=== PATIENT | female | born 1945 | race Caucasian/White ===

== ENCOUNTER 2025-06-11 17:18 | Emergency (ER) | payer OTHER ==
[~2025-06-11] VITALS: Ht 152.4 cm; Wt 72.7 kg
--- NOTE | 2025-06-11 17:34 | ED.PDOC ---
GI ASSESSMENT HPI Comments 80-year-old female with a history of CVA and residual left-sided deficit, hypertension and recent diagnosis of an umbilical hernia brought in by EMS from home complaining of umbilical hernia pain radiating to the right lower quadrant. Patient states she is not currently taking any medication for pain. She denies any fever, nausea, vomiting, diarrhea, constipation or dysuria. Patient states she had a bowel movement this morning. Time Seen by MD: 17:21 Reviewed Notes: Nurses Notes, Tennis Director Notes, Medications, Allergies Allergies: Coded Allergies: No Known Drug Allergy (Verified Allergy, Unknown, 06/11/25) Information Source: Patient, Emergency Med Personnel Mode of Arrival: EMS Timing: Days Duration: Since onset Prehospital treatment: None Past Medical History PAST MEDICAL HISTORY: CVA (residual left-sided deficit), HTN Past Medical History (Other): recent diagnosis of an umbilical hernia Surgical History: Hysterectomy Surgical History (Other): right arm surgery Social History Smoker: Non-Smoker Alcohol: Denies ETOH Use Drugs: Denies Drug Use Lives In: Home All Other Systems: Reviewed and Negative (Comprehensive systems review obtained and negative except for what is stated in the HPI.) Physical Exam General Appearance: No Apparent Distress, Obese HEENT: Other (Pupils and face symmetric. Moist mucous membranes.) Neck: Full Range of Motion, Normal Inspection Respiratory: Lungs Clear, No Accessory Muscle Use, No Respiratory Distress, Normal Breath Sounds Cardiovascular: No JVD, Regular Rate/Rhythm Breast Exam: Deferred Gastrointestinal: Distended, Hernia (Umbilical hernia approximately 2 cm, soft, tender, non reducible), RLQ, Tenderness Genitalia: Deferred Pelvic: Deferred Rectal: Deferred Extremities: Leg edema, Non-tender, Pedal edema Neurologic: Alert (Oriented x4), Normal Affect, Normal Mood, Other (Left upper extremity contracture) Cerebellar Function: NOT DONE Reflexes: NOT DONE Skin: Dry, Normal Color, Warm Lymphatic: NOT DONE EKG EKG : Comments Sinus rhythm with sinus arrhythmia, rate 87, normal intervals, left axis deviation, normal QRS, no ST/T changes. Was a procedure done? Was a procedure done?: No GI differential Dx Differential Diagnosis: Appendicitis, Bowel Obstruction, Constipation, Diverticular disease, Gastroenteritis, Inflammatory BD, UTI, Food Poisoning, Bacterial, Viral, Impaction, Ischemic Bowel, Stress Ulcer X-Ray, Labs, Meds, VS Vital Signs Date Time Temp Pulse Resp B/P (MAP) Pulse Ox O2 Delivery O2 Flow Rate FiO2 06/11/25 22:52 81 18 131/75 06/11/25 22:29 81 18 98 Room Air* 0 21 06/11/25 22:22 98.3 81 18 131/75 (93) 98 98.3 06/11/25 20:08 98.2 75 18 130/67 (88) 98 98.2 06/11/25 17:24 87 06/11/25 17:18 98.8 84 18 136/87 98 98.8 Lab Test 06/11/25 20:10 06/11/25 19:49 06/11/25 19:12 Range/Units Urine Color Light-yellow Yellow Urine Clarity Clear Clear Urine pH 6.0 5.0-9.0 Urine Specific [place] 1.021 1.001-1.035 Urine Protein Negative Negative Urine Ketones Negative Negative Urine Blood Negative Negative /uL Urine Nitrite Negative Negative Urine Bilirubin Negative Negative Urine Urobilinogen Normal Negative mg/dL Urine Leukocyte Esterase Negative Negative /uL Urine RBC 1 0 - 4 /hpf Urine Microscopic WBC 1 0-5 /HPF Urine Squamous Epithelial Cells Few <5 /hpf Urine Bacteria None seen None Seen /hpf Urine Glucose Normal Normal mg/dL White Blood Count 6.8 4.4-10.8 10^3/uL Red Blood Count 4.16 4.0-5.20 10^6/uL Hemoglobin 13.5 12.2-16.2 g/dL Hematocrit 40.4 36.0-46.0 % Mean Corpuscular Volume 96.9 80.0-100.0 fL Mean Corpuscular Hemoglobin 32.5 H 28.0-32.0 pg Mean Corpuscular Hemoglobin Concent 33.5 32.0-36.0 g/dL Red Cell Distribution Width 13.7 11.8-14.3 % Platelet Count 150 140-450 10^3/uL Mean Platelet Volume 9.5 6.9-10.8 fL Neutrophils (%) (Auto) 37.0-80.0 % Lymphocytes (%) (Auto) 10.0-50.0 % Monocytes (%) (Auto) 0.0-12.0 % Basophils (%) (Auto) 0.0-2.0 % Neutrophils # (Auto) 1.6-8.6 10 ^3/uL Lymphocytes # (Auto) 0.4-5.4 10 ^3/uL Monocytes # (Auto) 0-1.3 10 ^3/uL Differential Total Cells Counted 100.0 100 Neutrophils % (Manual) 59 37.0-80.0 Band Neutrophils % (Manual) 0 Lymphocytes % (Manual) 20 10.0-50.0 Monocytes % (Manual) 18 H 0-12 Eosinophils % (Manual) 3 0-7 Basophils % (Manual) 0 0.0-2.0 Metamyelocytes % (manual) 0 Myelocytes % (Manual) 0 Promyelocytes % (Manual) 0 Blast Cells % (Manual) 0 Reactive Lymphocytes 0 Platelet Estimate Adequate Sodium Level 142 136-145 mmol/L Potassium Level 4.5 3.5-5.1 mmol/L Chloride Level 110 H 98-107 mmol/L Carbon Dioxide Level 21 20-31 mmol/L Anion Gap 11 5-15 Blood Urea Nitrogen 14 9-23 mg/dL Creatinine 1.53 H 0.550-1.02 mg/dL Glomerular Filtration Rate Calc 35 >90 mL/min BUN/Creatinine Ratio 9.2 L 10.0-20.0 Serum Glucose 92 74-106 mg/dL Lactic Acid Level 0.8 0.4-2.0 mmol/L Calcium Level 9.4 8.7-10.4 mg/dL Total Bilirubin 0.5 0.2-1.0 mg/dL Aspartate Amino Transferase (AST) 35 13-40 U/L Alanine Aminotransferase (ALT) 9 7-40 U/L Alkaline Phosphatase 108 46-116 U/L Total Protein 7.9 5.7-8.2 g/dL Albumin 5.2 H 3.2-4.8 g/dL Current Medications Medications (Trade) Dose Ordered Sig/Lucy Route Start Time Stop Time Status Last Admin Morphine Sulfate 4 mg ONCE ONCE IV 06/11/25 22:00 06/11/25 22:28 DC 06/11/25 22:52 Ondansetron HCl (Zofran) 4 mg ONCE ONCE IV 06/11/25 22:00 06/11/25 22:28 DC 06/11/25 22:53 PROCEDURE(s): ABPL - CT AB PEL WO CON-NO ORAL OR IV REASON: Umbilical pain radiating to the right lower quadrant ORDER NUMBER(s): [id number], ACCESSION NUMBER(s): [id number] Exam: CT CT AB PEL WO CON-NO ORAL OR IV History: Umbilical pain radiating to the right lower quadrant Comparison Study: None TECHNIQUE: Multidetector CT of the abdomen and pelvis without IV contrast. Axial, coronal and sagittal multiplanar reformats were obtained from the axial data set by the technologist. Radiation Dose Information: CT Dose: CTDI volume is 20.9 mGy. Dose-length product is 3.92 mGy*cm FINDINGS: Bibasilar atelectasis. Mild cardiomegaly. Trace pericardial effusion. Mild splenomegaly. Otherwise, liver, spleen, gallbladder, pancreas and adrenal glands are unremarkable. Kidneys, ureters and urinary bladder are unremarkable. Uterus and adnexa are unremarkable. Moderate hiatal hernia. Stomach is otherwise unremarkable. The small bowel loops unremarkable. Appendix is unremarkable. Small to moderate amount of fecal material within the colon. No evidence of intraperitoneal free air or free fluid. No evidence of aortic aneurysm. [id number] atherosclerotic calcification of the aorta. No significant lymphadenopathy. Calcified injection granulomas of the bilateral proximal thigh subcutaneous fat. Minimal body wall fat stranding. Small to moderate fat containing umbilical hernia. Partially imaged bilateral breast implants with peripheral calcifications. Multilevel degenerative changes of the thoracic and lumbar spine. Minimal loss of superior vertebral body height of L4 and T7 with moderate loss of right-sided. superior vertebral body height of T6. Sclerotic focus over the left L2 vertebral body which may represent a bone island. IMPRESSION: Small to moderate sized fat containing umbilical hernia with mild fat stranding within the hernia extending into the adjacent anterior mesenteric fat. Correlate for possible strangulation of the herniated fat. Moderate hiatal hernia. X-Ray, Labs, Meds, VS Comment 80-year-old female with a history of CVA and residual left-sided deficit, hypertension and recent diagnosis of an umbilical hernia brought in by EMS from home complaining of umbilical hernia pain radiating to the right lower quadrant Vitals unremarkable Exam remarkable for umbilical hernia which is soft, not reducible, tender, with associated right lower quadrant tenderness to palpation Rhythm strip independently interpreted by me: Sinus rhythm, rate 84, no ectopy. CT abdomen and pelvis IMPRESSION: Small to moderate sized fat containing umbilical hernia with mild fat stranding within the hernia extending into the adjacent anterior mesenteric fat. Correlate for possible strangulation of the herniated fat. Moderate hiatal hernia. CBC unremarkable, CMP remarkable for creatinine 1.53, lactate normal UA negative Patient treated with the following in the ED: Morphine 4 mg IV, Zofran 4 mg IV On re-evaluation, pain has improved. Vitals were stable. Abdominal exam was essentially unchanged. Plan is to admit/transfer the patient for surgical evaluation. Patient endorsed to the overnight ED physician Dr. Alas to discuss with Bola. Patient is stable for transfer at this time. Time of 1ST Reevaluation: 17:51 Reevaluation 1ST: Unchanged Patient Education/Counseling: Diagnosis, Treatment Family Education/Counseling: No Family Present SEPSIS Sepsis Screen Physician Orders Ct Ab Pel Wo Con-No Oral Or Iv (06/11/25 17:34) Blood Culture (06/11/25 17:34) Vital Signs Date Time Temp Pulse Resp B/P (MAP) Pulse Ox O2 Delivery O2 Flow Rate FiO2 06/11/25 22:52 81 18 131/75 06/11/25 22:29 81 18 98 Room Air* 0 21 06/11/25 22:22 98.3 81 18 131/75 (93) 98 98.3 06/11/25 20:08 98.2 75 18 130/67 (88) 98 98.2 06/11/25 17:24 87 06/11/25 17:18 98.8 84 18 136/87 98 98.8 Laboratory Tests Test 06/11/25 19:12 06/11/25 19:49 Lactic Acid Level 0.8 mmol/L (0.4-2.0) White Blood Count 6.8 10^3/uL (4.4-10.8) Medications Medications Dose Ordered Sig/Lucy Route Start Time Stop Time Status Last Admin Dose Admin Morphine Sulfate 4 mg ONCE ONCE IV 06/11/25 22:00 06/11/25 22:28 DC 06/11/25 22:52 Ondansetron HCl 4 mg ONCE ONCE IV 06/11/25 22:00 06/11/25 22:28 DC 06/11/25 22:53 Departure 1 Departure Time of Disposition: 21:53 Impression: Primary Impression: Strangulated umbilical hernia Disposition: 02 SHORT TERM HOSPITAL Admit to: Med Surg Condition: Guarded Critical Care Note Critical Care Time?: No Stability Stability form required: No Heart Score Heart Score: Heart Score Response (Comments) Value History N/A 0 EKG N/A 0 Age N/A 0 Risk Factors N/A 0 Troponin N/A 0 Total 0 I personally scribed for TORIN MAGDALENO MD ([email or web address]) on 06/11/25 at 17:38. Electronically submitted by Pablo Ryan [email or web address]). TORIN MAGDALENO MD Jun 11, 2025 17:34
[2025-06-11 19:36] LABS: Alkaline Phosphatase 108 U/L (46-116)
[2025-06-11 19:37] LABS: Alanine Aminotransferase 9 U/L (7-40); Albumin 5.2 g/dL (3.2-4.8); Anion Gap 11 (5-15); BUN/Creatinine Ratio 9.2 (10.0-20.0); Bilirubin, Total 0.5 mg/dL (0.2-1.0); Blood Urea Nitrogen 14 mg/dL (9-23); Calcium 9.4 mg/dL (8.7-10.4); Carbon Dioxide 21 mmol/L (20-31); Chloride 110 mmol/L (98-107); Glucose 92 mg/dL (74-106); Potassium 4.5 mmol/L (3.5-5.1); Sodium 142 mmol/L (136-145); Total Protein 7.9 g/dL (5.7-8.2)
--- NOTE | 2025-06-11 19:43 | ECG ---
[facility] Test Date: 2025-06-11 Test Time: 17:24:32 Pat Name: MILADY NGUYEN Department: ED Room: Gender: F Inspector Fabric: ALLEN : 1945 Requested By: TORIN TREJO Order Number: [id number] Reading MD: Paras Mcbride Measurements Intervals [place] Rate: 87 P: 15 MS: 142 QRS: -8 QRSD: 94 T: 23 QT: 382 QTc: 460 Interpretive Statements Sinus arrhythmia Abnormal R-wave progression, late transition Baseline wander in lead(s) V1 Electronically Signed On 06-14-2025 22:51:42 PDT by Paras Mcbride Please click the below link to view image of tracing.
[2025-06-11 20:04] LABS: Hematocrit 40.4 % (36.0-46.0); Hemoglobin 13.5 g/dL (12.2-16.2); Mean Corpuscular Hemoglobin 32.5 pg (28.0-32.0); Mean Corpuscular Volume 96.9 fL (80.0-100.0)
[2025-06-11 20:31] LABS: Total Cells Counted 100.0 (100)
--- NOTE | 2025-06-11 21:43 | DVH ---
Exam: CT CT AB PEL WO CON-NO ORAL OR IV History: Umbilical pain radiating to the right lower quadrant Comparison Study: None TECHNIQUE: Multidetector CT of the abdomen and pelvis without IV contrast. Axial, coronal and sagitta l multiplanar reformats were obtained from the axial data set by the technologist. Radiation Dose Information: CT Dose: CTDI volume is 20.9 mGy. Dose-length product is 3.92 mGy*cm FINDINGS: Bibasilar atelectasis. Mild cardiomegaly. Trace pericardial effusion. Mild splenomegaly. Otherwise, liver, spleen, gallbladder, pancreas and adrenal glands are unremarkab le. Kidneys, ureters and urinary bladder are unremarkable. Uterus and adnexa are unremarkable. Moderate hiatal hernia. Stomach is otherwise unremarkable. The small bowel loops unremarkable. Append ix is unremarkable. Small to moderate amount of fecal material within the colon. No evidence of intraperitoneal free air or free fluid. No evidence of aortic aneurysm. [id number] atherosclerotic calcification of the aorta. No significant lymphadenopathy. Calcified injection granulomas of the bilateral proximal thigh subcutaneous fat. Minimal body wall fa t stranding. Small to moderate fat containing umbilical hernia. Partially imaged bilateral breast imp lants with peripheral calcifications. Multilevel degenerative changes of the thoracic and lumbar spin e. Minimal loss of superior vertebral body height of L4 and T7 with moderate loss of right-sided. sup erior vertebral body height of T6. Sclerotic focus over the left L2 vertebral body which may represen t a bone island. IMPRESSION: Small to moderate sized fat containing umbilical hernia with mild fat stranding within the hernia ext ending into the adjacent anterior mesenteric fat. Correlate for possible strangulation of the herniat ed fat. Moderate hiatal hernia.
[2025-06-11 22:29] VITALS: PULSE 81; RESP 18; O2SAT 98
[2025-06-11 22:35] LABS: Urine Protein, UAD Negative (Negative)
[2025-06-11] MEDS: MORPHINE SULFATE 4 MG/ML SYR/VIAL IV ONE (22:52)
[2025-06-11] MEDS: ONDANSETRON HCL 4 MG/2 ML VIAL IV ONE (22:53)
[2025-06-12 03:20] VITALS: BP 101/59; PULSE 74; RESP 21; TEMP 98.2; O2SAT 94
== END 2025-06-12 03:39 | disposition short-term general hospital (02) ==
LOC: EDBD 17:18 → ER 17:26
DX: K42.0 Umbilical hernia with obstruction, without gangrene (principal); I10 Essential (primary) hypertension; I69.354 Hemiplegia and hemiparesis following cerebral infarction affecting left non-dominant side; Z90.710 Acquired absence of both cervix and uterus
CPT/HCPCS: 36415; 74176; 80053; 81001; 83605; 85007; 85027; 87040; 93005; 96374; 96375; 99285; J2270; J2405